=== PATIENT | male | born 1980 | race Two or more races ===

== ENCOUNTER 2017-02-11 07:23 | Emergency (ER) ==
[2017-02-11 07:30] VITALS: BP 128/89; TEMP 97.2; BMI 25.8
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
[2017-02-11 08:30] LABS: BASOPHILS % (AUTO) 0.4 % (0.0-3.0); EOSINOPHILS # (AUTO) 0.2 K/ul (0.0-0.7); EOSINOPHILS % (AUTO) 1.7 % (0.0-7.0); HEMATOCRIT 43.6 % (42.0-52.0); HEMOGLOBIN 15.2 g/dl (14.0-18.0); IMMATURE GRANULOCYTE % (AUTO) 0.2 % (0.0-5.0); MEAN CORPUSCULAR HEMOGLOBIN 32.2 pg (27.0-31.0); MEAN CORPUSCULAR HGB CONC 34.9 (31.8-35.4); MEAN CORPUSCULAR VOLUME 92.4 fl (80.0-94.0); MONOCYTES # (AUTO) 0.6 K/uL (0.4-2.0); MONOCYTES % (AUTO) 6.6 (0-10); NEUTROPHILS # (AUTO) 5.8 K/ul (2.0-6.9); NEUTROPHILS % (AUTO) 60.1; PLATELET COUNT 348 10^3/uL (140-440); RED BLOOD COUNT 4.72 10^6/ul (4.70-6.10); WHITE BLOOD COUNT 9.64 K/ul (4.2-10.2)
[2017-02-11 08:51] LABS: ACETAMINOPHEN < 3 ug/ml (10-30); SALICYLATE < 5.0 mg/dL (2.8-20.0)
[2017-02-11 09:06] LABS: ALANINE AMINOTRANSFERASE 14 U/L (12-78); ALBUMIN 3.9 g/dL (3.4-5.0); ALBUMIN/GLOBULIN RATIO 1.18; ALKALINE PHOSPHATASE 73 U/L (50-136); ANION GAP 10.5; ASPARTATE AMINO TRANSFERASE 13 U/L (15-37); BLOOD UREA NITROGEN 7 mg/dL (7-18); BUN/CREATININE RATIO 7.52; CALCIUM 9.5 mg/dL (8.2-10.2); CARBON DIOXIDE 26 mmol/L (21-32); CHLORIDE 104 mmol/L (98-107); CREATINE KINASE 126 U/L; CREATININE 0.93 mg/dL (0.60-1.10); GLUCOSE 84 mg/dL (70-100); POTASSIUM 3.5 mmol/L (3.5-5.1); SODIUM 137 mmol/L (136-145); TOTAL PROTEIN 7.2 g/dL (6.4-8.2)
[2017-02-11 09:07] LABS: CREATINE KINASE MB 1.9 ng/ml (0.0-3.6)
[2017-02-11 09:49] LABS: BILIRUBIN,URINE Negative (NEGATIVE); KETONES,URINE Trace (NEGATIVE); LEUKOCYTE ESTERASE ,URINE Negative (NEGATIVE); NITRITE,URINE Negative (NEGATIVE); PROTEIN,URINE Negative (NEGATIVE); URINE, BLOOD 1+ (NEGATIVE)
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
[2017-02-11 10:01] LABS: ADD URINE MICROSCOPIC YES
[2017-02-11 10:02] LABS: SPERM,URINE TRACE (NOT PRESENT)
[2017-02-11 10:03] LABS: COCAIN SCREEN,URINE NEGATIVE (NEGATIVE)
== END 2017-02-11 10:51 | disposition home or self-care (01) ==
LOC: ED 07:23
DX: T50.901A Poisoning by unspecified drugs, medicaments and biological substances, accidental (unintentional), initial encounter (principal); R41.82 Altered mental status, unspecified; R51 Headache; M79.1 Myalgia; M54.5 Low back pain; M79.622 Pain in left upper arm; V49.9XXA Car occupant (driver) (passenger) injured in unspecified traffic accident, initial encounter; F17.210 Nicotine dependence, cigarettes, uncomplicated
CPT/HCPCS: 36415; 80053; 80306; 80307; 81001; 82550; 82553; 84484; 85025; 93005; 93010; 99283